=== PATIENT | female | born 1970 | race Caucasian/White ===

== ENCOUNTER 2019-09-22 08:50 | Emergency (ER) | payer BC ==
[~2019-09-22] VITALS: Ht 154.9 cm; Wt 67.1 kg
[2019-09-22] MEDS ORDERED: SODIUM CHLORIDE 0.9% 1000ML 1,000 ML IV STA (08:55)
[2019-09-22 09:21] LABS: BASOPHILS % 0.4 % (0.0-1.0); EOSINOPHILS % 0.4 % (0.0-6.0); HEMATOCRIT 42.7 % (34.2-44.1); HEMOGLOBIN 14.2 g/dL (12.0-16.0); LYMPHOCYTES # (AUTO) 2.1 (1.0-3.2); LYMPHOCYTES % 29.1 % (18.0-39.1); MEAN CORPUSCULAR HEMOGLOBIN 29.3 pg (28-32); MEAN CORPUSCULAR HGB CONC 33.3 g/dL (31-35); MONOCYTES # (AUTO) 0.4 (0.2-0.8); MONOCYTES % 5.4 % (4.4-11.3); NEUTROPHILS # (AUTO) 4.7 (2.1-6.9); NEUTROPHILS % 64.6 % (38.7-80.0); PLATELET COUNT 305 x10e3/uL (140-360); RED BLOOD COUNT 4.85 x10e6/uL (3.6-5.1); RED CELL DISTRIBUTION WIDTH 13.2 % (11.7-14.4)
--- NOTE | 2019-09-22 09:26 | NUR ---
Pt reports hysterectomy performed on 07/13/19, no complications post surgery. Pt reports occasional bleeding since hysterectomy and had silver nitrate treatment [id number] by OB up to a few weeks ago until bleeding stopped.
[2019-09-22] MEDS ORDERED: KETOROLAC TROMETHAMINE 30 MG/ML VIAL IV NR (09:30)
[2019-09-22 09:41] LABS: ALANINE AMINOTRANSFERASE 8 IU/L (0-55); ALBUMIN 3.6 g/dL (3.5-5.0); ALKALINE PHOSPHATASE 77 IU/L (40-150); ANION GAP 17.6 mmol/L (8-16); BLOOD UREA NITROGEN 8 mg/dL (7-26); BUN/CREATININE RATIO 11 (6-25); CALCIUM 9.4 mg/dL (8.4-10.2); CARBON DIOXIDE 21 mmol/L (22-29); CHLORIDE 105 mmol/L (98-107); CREATININE, SERUM 0.76 mg/dL (0.57-1.11); EST GLOMERULAR FILTRATION RATE > 60 ML/MIN (60-); GLUCOSE 113 mg/dL (74-118); POTASSIUM 3.6 mmol/L (3.5-5.1); SODIUM 140 mmol/L (136-145)
--- NOTE | 2019-09-22 10:48 | Diagnostic Imaging Report ---
EXAMINATION: CT of the abdomen and pelvis with contrast. TECHNIQUE: Helical CT images of the abdomen and pelvis were performed from the lung bases to the lesser trochanters after the intravenous administration of 100 cc of Isovue 300 and the oral administration of none. Coronal and sagittal reformatted images were obtained.Dose modulation, iterative reconstruction, and/or weight based adjustment of the mA/kV was utilized to reduce the radiation dose to as low as reasonably achievable. COMPARISON: None. CLINICAL HISTORY:Abdominal pain DISCUSSION: ABDOMEN/PELVIS: LOWER THORAX:Unremarkable. HEPATOBILIARY: 1.1 cm left hepatic lobe lesion with additional smaller lesion, likely cysts. No intra-or extrahepatic biliary ductal dilation. The gallbladder is normal. SPLEEN: No splenomegaly. PANCREAS: No focal masses or ductal dilatation. ADRENALS: No adrenal nodules. KIDNEYS/URETERS: No hydronephrosis, stones, or solid mass lesions. PELVIC ORGANS/BLADDER: Bladder is unremarkable. PERITONEUM/RETROPERITONEUM: Mild free fluid within the cul-de-sac LYMPH NODES: No intra-abdominal, retroperitoneal, pelvic or inguinal lymphadenopathy. VESSELS: The celiac trunk,superior and inferior mesenteric and bilateral renal arteries are patent The portal, superior mesenteric and splenic veins are patent. GI TRACT: No distention or wall thickening. A short appendix visualized. BONES AND SOFT TISSUE: No bony destructive lesions. No soft tissue abnormalities. IMPRESSION: Mild free fluid within the pelvis. Otherwise, unremarkable. Signed by: Dr. David Parikh M.D. on 09/22/2019 10:46 AM
--- NOTE | 2019-09-22 12:03 | Diagnostic Imaging Report ---
EXAMINATION: Pelvic ultrasound CLINICAL INDICATION: Dysfunctional bleeding COMPARISON: CT from 09/22/2019 DISCUSSION: Transverse and sagittal transvaginal images were obtained of the pelvis with supplemental transabdominal images. Patient is status post total abdominal hysterectomy. No pelvic masses. Trace free fluid. IMPRESSION: Status post total hysterectomy. Trace free fluid. Signed by: Dr. David Parikh M.D. on 09/22/2019 12:00 PM
[2019-09-22] MEDS ORDERED: SODIUM CHLORIDE 0.9% 50ML 50 ML ONE (12:09)
[2019-09-22] MEDS ORDERED: IOPAMIDOL 370 MG/ML 200 ML INFUS..BTL INJ ONE (12:09)
[2019-09-22] MEDS ORDERED: MORPHINE SULFATE INJ 4 MG/ML INJ 1ML IV PRN (13:45)
[2019-09-22] MEDS: ONDANSETRON HCL INJ 2MG/ML 2ML 2 MG/ML VIAL IV STA ×2 (13:55→14:25)
--- NOTE | 2019-09-22 14:31 | NUR ---
Pelvic exam perfomed by Dr. Baez, assisted by this RN. Noted vaginal bleeding. Pt given Morphine and zofran. Patient reports pain 10/10. Awaiting further orders/disposition.
[2019-09-22] MEDS ORDERED: PIPER-TAZ 3.375 GM 50 ML IV NR (14:45)
--- NOTE | 2019-09-22 15:20 | NUR ---
Zosyn IVPB infusing.
--- NOTE | 2019-09-22 15:29 | NUR ---
[facility] contacted for transport to [facility]. ETA 1hr.
--- NOTE | 2019-09-22 15:32 | NUR ---
ER to ER report called to to Vernell PRICE at [facility] . Preparing patient for transport.
[2019-09-22] MEDS ORDERED: MORPHINE SULFATE INJ 4 MG/ML INJ 1ML IV NR (16:50)
[2019-09-22] MEDS ORDERED: MORPHINE SULFATE INJ 4 MG/ML INJ 1ML ONE (17:03)
[2019-09-22 17:04] VITALS: BP 142/72
== END 2019-09-22 17:09 | disposition other institution (70) ==
LOC: ER 08:50 → EDSEX 08:50 → ER 17:09
DX: N93.9 Abnormal uterine and vaginal bleeding, unspecified (principal); N93.0 Postcoital and contact bleeding; Z90.710 Acquired absence of both cervix and uterus
CPT/HCPCS: 36415; 74177; 76830; 76856; 80053; 85025; 96374; 96375; 99284; J1885; J2270; J2405; J2543; J7030; Q9967